=== PATIENT | male | born 1980 | race Two or more races ===

== ENCOUNTER 2016-08-01 08:57 | Emergency (ER) | payer OTHER ==
[2016-08-01 09:02] VITALS: BP 134/80; PULSE 84; TEMP 98.2; BMI 24.3
--- NOTE | 2016-08-01 09:51 | PDOC ---
History of Present Illness - General Chief Complaint: Cold Symptoms Stated Complaint: FEVER Time Seen by Provider: 08/01/16 09:12 History Source: Patient Exam Limitations: No Limitations - History of Present Illness Initial Comments: 08/01/16 09:46 Patient here with complaints of generalized body aches, feelings of fever although takes temperature and is normal, tiredness and a runny nose. e. Some Tylenol which helped resolve Severity: reports: mild, moderate Associated Symptoms: reports: denies symptoms, chest pain/soreness, cough, fever /chills, headache, nasal congestion, nasal drainage. denies: sore throat, wheezing Past History - Travel Traveled outside of the country in the last 30 days: No Close contact w/someone who was outside of country & ill: No - Past Medical History Allergies/Adverse Reactions: Allergies Allergy/AdvReac Type Severity Reaction Status Date / Time No Known Allergies Allergy Verified 08/01/16 09:02 Home Medications: Ambulatory Orders NK [No Known Home Medication] 08/01/16 - Psycho/Social/Smoking Cessation Hx Anxiety: No Suicidal Ideation: No Smoking History: Never smoked Have you smoked in the past 12 months: No Information on smoking cessation initiated: No Hx Alcohol Use: No Drug/Substance Use Hx: No Substance Use Type: None Review of Systems - Review of Systems Able to Perform ROS?: Yes Is the patient limited Albanian proficient: Yes Constitutional: Yes: Symptoms Reported HEENTM: Yes: Symptoms Reported, See HPI, Nose Congestion. No: Throat Pain, Throat Swelling Respiratory: Yes: See HPI. No: Cough Cardiac (ROS): Yes: See HPI ABD/GI: Yes: Symptoms Reported, See HPI Musculoskeletal: Yes: Symptoms Reported, See HPI Integumentary: No: Symptoms Reported Neurological: No: Symptoms reported All Other Systems: Reviewed and Negative *Physical Exam - Vital Signs Last Vital Signs Temp Pulse Resp BP Pulse Ox 98.2 F 84 20 134/80 99 08/01/16 09:00 08/01/16 09:00 08/01/16 09:00 08/01/16 09:00 08/01/16 09:00 - Physical Exam General Appearance: Yes: Nourished, Appropriately Dressed, Apparent Distress HEENT: positive: LÓPEZ, Normal ENT Inspection, TMs Normal (congested but landmarks easily visualized). negative: Pharynx Normal, Tonsillar Exudate, Tonsillar Erythema Neck: positive: Supple. negative: Tender, Lymphadenopathy (R), Lymphadenopathy (L) Respiratory/Chest: positive: Lungs Clear, Normal Breath Sounds (no wheezing or retractions.). negative: Respiratory Distress, Wheezing Cardiovascular: positive: Regular Rate Gastrointestinal/Abdominal: positive: Normal Bowel Sounds, Soft. 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, Fully Oriented, Alert, Normal Mood/ Affect Medical Decision Making - Medical Decision Making 08/01/16 09:49 Upper respiratory infection, no evidence of bacterial infection therefore we'll treat conservatively 08/01/16 09:49 *DC/Admit/Observation/Transfer Diagnosis at time of Disposition: Upper respiratory infection, viral - Discharge Dispostion Disposition: HOME Condition at time of disposition: Stable Admit: No - Patient Instructions Additional Instructions: Rest, drink lots of fluids: Teas, water, soups, Pedialyte Saltwater gargles Steamy showers/seem to face break up mucus Avoid contact with others until fevers and cough resolved Lots of handwashing and good hygiene Continue [id number] medications for symptomatic relief Tylenol or Motrin for fever and pain Followup with private physician in one to 2 days as needed Return to emergency department for worsened symptoms, fevers, dehydration - Post Discharge Activity Work/School Note: Back to Work
== END 2016-08-01 10:11 | disposition home or self-care (01) ==
LOC: JERFT 08:57
DX: J06.9 Acute upper respiratory infection, unspecified (principal); B97.89 Other viral agents as the cause of diseases classified elsewhere
CPT/HCPCS: 99281-25

== ENCOUNTER 2017-11-24 17:34 | Emergency (ER) | payer OTHER ==
--- NOTE | 2017-11-24 17:51 | PDOC ---
Rapid Medical Evaluation Time Seen by Provider: 11/24/17 17:48 Medical Evaluation: Allergies Allergy/AdvReac Type Severity Reaction Status Date / Time No Known Allergies Allergy Verified 08/01/16 09:02 11/24/17 17:48 I have performed a brief in-person evaluation of this patient. The patient presents with a chief complaint of: diffuse abd pain since night, last BM--last night, no f/c Pertinent physical exam findings: none I have ordered the following:labs, UA The patient will proceed to the ED for further evaluation. 11/24/17 17:52 Discharge Disposition - Diagnosis Abdominal pain Qualifiers: Abdominal location: generalized Qualified Code(s): R10.84 - Generalized abdominal pain - Referrals - Patient Instructions - Post Discharge Activity
[2017-11-24 17:53] VITALS: TEMP 98.6; BMI 23.8
--- NOTE | 2017-11-24 19:18 | PDOC ---
History of Present Illness - General Chief Complaint: Pain Stated Complaint: ABD PAIN Time Seen by Provider: 11/24/17 17:48 - History of Present Illness Initial Comments: 11/24/17 20:50 The patient is a 37 year old male with no significant PMH who presents for evaluation of abdominal pain. The patient reports a 1 day history of intermittent epigastric and periumbilical abdominal pain that is crampy in nature prompting his presentation to the ED for further evaluation. He notes that he had similar symptoms many years ago and had been diagnosed with an ulcer at that time. He otherwise denies fevers, chills, SOB, chest pain, nausea , vomiting, or changes with urination or bowel movements. Past History - Past Medical History Allergies/Adverse Reactions: Allergies Allergy/AdvReac Type Severity Reaction Status Date / Time No Known Allergies Allergy Verified 11/24/17 17:53 Home Medications: Ambulatory Orders Mag Hydrox/Al Hydrox/Simeth [Mylanta Suspension -] 30 ml PO Q6H #1 bottle Pantoprazole Sodium [Protonix] 40 mg PO DAILY #20 tablet. 11/24/17 - Suicide/Smoking/Psychosocial Hx Smoking History: Never smoked Have you smoked in the past 12 months: No Information on smoking cessation initiated: No Hx Alcohol Use: No Drug/Substance Use Hx: No Substance Use Type: None Review of Systems - Review of Systems Comments:: 11/24/17 20:53 Constitutional: No fevers, chills, fatigue, malaise HEENT: No Rhinorrhea, nasal congestion, visual changes Cardiovascular: No chest pain, syncope, palpitations, lightheadedness Respiratory: No Cough, SOB, Hemoptysis, Gastrointestinal: Abdominal pain. No Nausea, Vomiting, Constipation, Diarrhea, Melena Genitourinary: No Dysuria, Frequency, Urgency, Hesitancy, Hematuria, Flank pain Musculoskeletal: No Myalgia, arthralgia Skin: No rashes, itching, bruising, pallor Neurologic: No Headache, Dizziness, Numbness, Weakness, or Tingling Psychiatric: No Hallucinations. No SI or HI *Physical Exam - Vital Signs Last Vital Signs Temp Pulse Resp BP Pulse Ox 98.6 F 65 16 139/77 100 11/24/17 17:50 11/24/17 17:50 11/24/17 17:50 11/24/17 17:50 11/24/17 17:50 - Physical Exam Comments: 11/24/17 20:53 General Appearance: Nourished. No Apparent Distress HEENT: No Pharyngeal Erythema, Tonsillar Exudate, Tonsillar Erythema Neck: No Cervical Lymphadenopathy Respiratory/Chest: Lungs Clear, Normal Breath Sounds. No Crackles, Rales, Rhonchi, Wheezing Cardiovascular: Regular Rhythm, Regular Rate. No Murmur, Gallops, Rubs Gastrointestinal/Abdominal: Normal Bowel Sounds, Soft. Mild epigastric and periumbilical discomfort with palpation. No Guarding, Rebound, Musculoskeletal: No CVA Tenderness Extremity: Normal Capillary Refill Integumentary: Normal Color, Dry, Warm Neurologic: Fully Oriented, Alert, Normal Mood/Affect, Normal Response, ED Treatment Course - LABORATORY CBC & Chemistry Diagram: 11/24/17 19:15 11/24/17 19:15 Medical Decision Making - Medical Decision Making 11/24/17 20:54 The patient is a 37 year old male with no significant PMH who presents for evaluation of abdominal pain. Differential includes but is not limited to: Gastritis, Pancreatitis, Cholecystitis, Infectious, Metabolic derangement. Given the patient's history and physical exam, we will obtain a cbc, cmp, lipase , ua, gallbladder us to evaluate further. We will treat in the meantime with iv fluids, pepcid, maalox, viscous lidocaine and continue to monitor and reassess while here in the ED. 11/24/17 21:30 CBC, cmp, is unremarkable. Lipase is mildly elevated to 600. Gallbladder US is unremarkable as read by our radiologist. The patient reports improvement in his symptoms. We are comfortable discharging the patient home with GI follow up. We discussed the results, plan, and return precautions with the patient who voiced understanding and is agreeable with the plan. *DC/Admit/Observation/Transfer Diagnosis at time of Disposition: Abdominal pain Qualifiers: Abdominal location: generalized Qualified Code(s): R10.84 - Generalized abdominal pain - Discharge Dispostion Disposition: HOME Condition at time of disposition: Stable Decision to Admit order: No - Prescriptions Prescriptions: Mag Hydrox/Al Hydrox/Simeth [Mylanta Suspension -] 30 ml PO Q6H #1 bottle Pantoprazole Sodium [Protonix] 40 mg PO DAILY #20 tablet.dr - Referrals Referrals: ON STAFF,NOT [Primary Care Provider] - Jose Dodson MD [Staff Physician] - - Patient Instructions Printed Discharge Instructions: DI for Abdominal Pain-Adult Additional Instructions: Please return to the ER if you experience concerning or worsening symptoms including worsening pain, vomiting, or fevers. Your lab results showed that your lipase is mildly elevated. We have sent a prescription for protonix and maalox to your pharmacy that you may use to help manage your symptoms. You must call to schedule a follow up appointment with our GI specialist Dr. Dodson within 2-3 days to discuss your ER visit and further management of your symptoms. - Post Discharge Activity
[2017-11-24] MEDS ORDERED: MAG HYDROX/AL HYDROX/SIMETH 30 ML UNIT-DOSE CUP PO ONE (19:26)
[2017-11-24] MEDS ORDERED: LIDOCAINE VISCOUS 2% ORAL/TOP 20 ML UNIT-DOSE CUP MM ONE (19:26)
[2017-11-24] MEDS ORDERED: SODIUM CHLORIDE 1,000 ML IV STA (19:26)
[2017-11-24 19:30] LABS: HEMATOCRIT 48.5 % (35.4-49); HEMOGLOBIN 15.8 GM/dL (11.7-16.9); MCH 26.8 pg (25.7-33.7); MCHC 32.5 g/dl (32.0-35.9); MEAN CELL VOLUME 82.3 fl (80-96); PLATELET COUNT 158 K/MM3 (134-434); RDW 12.9 % (11.9-15.9); WHITE BLOOD COUNT 6.9 K/mm3 (4.0-10.0)
[2017-11-24] MEDS ORDERED: FAMOTIDINE 20 MG/50 ML IVPB 20 MG/50 ML MG IVPB ONE ×2 (19:30→20:04)
--- NOTE | 2017-11-24 19:41 | PDOC ---
Attending Attestation - Resident Resident Name: Osbaldo Melchor - ED Attending Attestation I have performed the following: I have examined & evaluated the patient, The case was reviewed & discussed with the resident, I agree w/resident's findings & plan, Exceptions are as noted - HPI HPI: 11/24/17 19:40 37 yo male with epigastric pain with no N V D ,cp fever or chills 11/24/17 19:41 - Physicial Exam PE: 11/24/17 21:17 37 yo male p/w epigstric pain x 1 day -no history of etoh abuse, h/o gastric ulcer in the past 11/24/17 21:18 slender 37 yo male in no acute distress head ncat neck supple lungs cta b.k cvs [id number] abd epigastic discomfort to deep palpation, no guarding or rebound ext no e/c/c skin warm and dry neuro axox3,no ataxia,motor strength5/5,b/l psych appropriate - Medical Decision Making 11/24/17 19:42 PMH duodenal/gastric plan labs,GB ultrasound ulcer was found by EGD in the remote past and pt is concerned this has reoccurred 11/24/17 21:20 cbc unremarkable chemistries shows bumped lipase >600 gallbladder US is unremarkable plan pt to be referred to GI, Dr Dodson for further w/u
[2017-11-24 19:53] LABS: ALBUMIN 4.2 g/dl (3.4-5.0); ALK PHOS 68 U/L (45-117); ANION GAP 10 MMOL/L (8-16); BILIRUBIN,TOTAL 1.5 mg/dL (0.2-1.0); BLOOD UREA NITROGEN 12 mg/dL (7-18); CALCIUM 9.3 mg/dL (8.5-10.1); CHLORIDE 105 mmol/L (98-107); CO2 28 mmol/L (21-32); CREATININE 1.2 mg/dL (0.7-1.3); GLUCOSE,RANDOM 99 mg/dL (74-106); POTASSIUM 4.4 mmol/L (3.5-5.1); SGOT/AST 14 U/L (15-37); SGPT/ALT 28 U/L (12-78); SODIUM 143 mmol/L (136-145); TOT PROT 7.7 g/dl (6.4-8.2)
[2017-11-24] MEDS ORDERED: LIDOCAINE VISCOUS 2% ORAL/TOP 20 ML UNIT-DOSE CUP ONE (20:04)
[2017-11-24] MEDS ORDERED: MAG HYDROX/AL HYDROX/SIMETH 30 ML UNIT-DOSE CUP ONE (20:04)
[2017-11-24 21:23] LABS: URINE APPEARANCE CLEAR; URINE BILIRUBIN NEGATIVE (<2.0 mg/dL); URINE COLOR YELLOW; URINE GLUCOSE (UA) NEGATIVE (NEGATIVE); URINE KETONE NEGATIVE (NEGATIVE); URINE LEUK ESTERASE NEGATIVE (NEGATIVE); URINE NITRITE NEGATIVE (NEGATIVE); URINE PROTEIN NEGATIVE (NEGATIVE); URINE UROBILINOGEN NEGATIVE mg/dL (0.2-1.0)
[2017-11-24 21:47] VITALS: BP 131/82; PULSE 67
== END 2017-11-24 21:46 | disposition home or self-care (01) ==
LOC: JER 17:34
PROC: 3E033GC Introduction of Other Therapeutic Substance into Peripheral Vein, Percutaneous Approach (ICD-10-PCS; principal; 2017-11-24)
PROC: 3E0337Z Introduction of Electrolytic and Water Balance Substance into Peripheral Vein, Percutaneous Approach (ICD-10-PCS; 2017-11-24)
DX: R10.84 Generalized abdominal pain (principal)
CPT/HCPCS: 36415; 76705-TC; 80053; 81003; 83690; 85027; 99282-25; J7030

== ENCOUNTER 2017-12-10 09:32 | Day surgery (SDC) | payer OTHER ==
[2017-12-09 15:40] VITALS: BMI 23.5
--- NOTE | 2017-12-10 11:18 | PROC ---
Endoscopy Procedure Endoscopy procedure completed. Please see scanned procedure report.
[2017-12-10 11:40] VITALS: TEMP 97.2
[2017-12-10 12:50] VITALS: BP 121/77; PULSE 55
--- NOTE | 2017-12-11 16:38 | PATH ---
Surgical Pathology Report Patient Name: AME JANE [facility]. Rec. #: [id number] /Age/Gender: 1980 (Age: 37) / M Account: [id number] Location: [facility]-ENDOSCOPY Taken: 12/10/2017 Received: 12/10/2017 Reported: 12/11/2017 Physicians: Jose Dodson M.D. Specimen(s) Received A: BX 2ND PORTION DUODENUM B: BX ANTRUM AND BODY Clinical History Epigastric pain Postoperative diagnosis: Duodenitis, gastritis Final Diagnosis A. DUODENUM, SECOND PORTION, BIOPSY: DUODENAL MUCOSA WITH SMALL LYMPHOID AGGREGATES. B. STOMACH, ANTRUM AND BODY, BIOPSY: GASTRIC ANTRAL AND BODY MUCOSA WITH MILD CHRONIC GASTRITIS. IMMUNOHISTOCHEMICAL STAIN FOR H. PYLORI IS NEGATIVE. Electronically Signed Deonna Patel M.D. Gross Description A. Received in formalin, labeled "second portion of duodenum" are 3 donis, irregular portions of soft tissue ranging from 0.2-0.3 cm. in greatest dimension. The specimens are submitted in toto in one cassette. B. Received in formalin, labeled "antrum and body" are 2 donis, irregular portions of soft tissue measuring 0.2 and 0.5 cm. in greatest dimension. The specimens are submitted in toto in one cassette. 12/10/2017 [facility]12/10/2017
== END 2017-12-10 12:50 | disposition home or self-care (01) ==
LOC: JASU-ENDO 09:32
PROVIDERS: ATTEND Internal Medicine Gastroenterology
PROC: 0DB68ZX Excision of Stomach, Via Natural or Artificial Opening Endoscopic, Diagnostic (ICD-10-PCS; 2017-12-10)
PROC: 0DB98ZX Excision of Duodenum, Via Natural or Artificial Opening Endoscopic, Diagnostic (ICD-10-PCS; principal; 2017-12-10 12:30)
DX: K29.60 Other gastritis without bleeding (principal); K29.80 Duodenitis without bleeding
CPT/HCPCS: 88305-TC; 88342-TC

== ENCOUNTER 2020-02-25 13:23 | Emergency (ER) | payer OTHER ==
[2020-02-25 13:49] VITALS: BP 153/95; PULSE 103; TEMP 97.9; BMI 23.5
[2020-02-25] MEDS ORDERED: IBUPROFEN 600 MG TABLET (FP) PO ONE ×2 (14:05→14:18)
== END 2020-02-25 14:47 | disposition home or self-care (01) ==
LOC: JERFT 13:23
DX: S46.811A Strain of other muscles, fascia and tendons at shoulder and upper arm level, right arm, initial encounter (principal); V87.7XXA Person injured in collision between other specified motor vehicles (traffic), initial encounter
CPT/HCPCS: 99284-25

== ENCOUNTER 2021-07-25 12:54 | Emergency (ER) | payer OTHER ==
[2021-07-25 13:10] VITALS: BP 129/81; PULSE 81; TEMP 97.6; BMI 23.8
[2021-07-25] MEDS ORDERED: LIDOCAINE 5% TOPICAL PATCH TP ONE (14:09)
[2021-07-25] MEDS ORDERED: KETOROLAC TROMETHAMINE 30 MG/1 ML VIAL IM ONE (14:09)
[2021-07-25] MEDS ORDERED: KETOROLAC TROMETHAMINE 30 MG/1 ML VIAL ONE (14:10)
[2021-07-25] MEDS ORDERED: LIDOCAINE 5% TOPICAL PATCH ONE (14:10)
[2021-07-25] MEDS ORDERED: LIDOCAINE PATCH REMOVAL MC ONE (22:00)
== END 2021-07-25 14:34 | disposition home or self-care (01) ==
LOC: JERFT 12:54
PROC: 3E023GC Introduction of Other Therapeutic Substance into Muscle, Percutaneous Approach (ICD-10-PCS; principal; 2021-07-25)
DX: M54.2 Cervicalgia (principal); M54.6 Pain in thoracic spine; V49.40XA Driver injured in collision with unspecified motor vehicles in traffic accident, initial encounter
CPT/HCPCS: 99284-25